=== PATIENT | female | born 1985 | race American Indian/Alaskan Native ===

== ENCOUNTER 2020-12-05 18:46 | Emergency (ER) | payer OTHER ==
[2020-12-05] MEDS ORDERED: Lidocaine 1% w/Epinephrine 1:100K 20 ML VIAL ONE (19:15)
== END 2020-12-05 19:54 | disposition home or self-care (01) ==
LOC: ERS 18:46
DX: S01.81XA Laceration without foreign body of other part of head, initial encounter (principal); X58.XXXA Exposure to other specified factors, initial encounter
CPT/HCPCS: 12051